=== PATIENT | female | born 1985 | race Caucasian/White ===

== ENCOUNTER → 2021-07-04 13:42 | Outpatient (CLI) | payer SELFPAY ==
--- NOTE | ~2021-07-04 | US_ITS ---
EXAMINATION: US pelvic complete w TV DATE: 07/04/2021 14:25 INDICATION: Pelvic pain Comparison:No prior studies for comparison. TECHNIQUE: Multiple transabdominal and endovaginal sonographic images of the pelvis performed. FINDINGS: The uterus measures 9.4 x 3.8 x 5.1 cm. The endometrial complex measures 11 mm. The right ovary measures 3.9 x 2.6 x 3 cm and the left ovary measures 2.1 x 2.6 x 1.7 cm. There are small follicles in each ovary. Normal doppler signal in both ovaries. There is no free fluid in the pelvis. There are no abnormal masses seen on either side. IMPRESSION: 1. Unremarkable pelvic ultrasound. Reviewed, dictated and finalized at location B.
== END ==
PROVIDERS: PCP Advanced Practice Midwife; Visit Provider Advanced Practice Midwife
DX: R10.2 Pelvic and perineal pain (principal)
CPT/HCPCS: 76830; 76856